=== PATIENT | male | born 1950 | race Caucasian/White ===

== ENCOUNTER 2024-11-12 22:51 | Day surgery (SDC) | payer MEDICARE, SELFPAY ==
[2024-11-12 17:13] VITALS: BP 161/94
[2024-11-12 17:31] LABS: Urine Character Clear (Clear)
[2024-11-12 17:32] LABS: Hematocrit 43.6 % (39.0-52.0); Hemoglobin 15.2 g/dL (13.0-18.0); Mean Corp Hgb Conc. 34.9 g/dL (33.0-37.0); Mean Corpuscular Volume 94.8 fL (80.0-94.0); Nucleated Red Blood Cells % 0 % (-); Platelet Count 246 10^3/uL (130-400); Red Cell Dist. Width 12.3 % (11.5-14.5)
[2024-11-12 17:42] LABS: Urine Red Blood Cell 90-100 /HPF (0-2)
[2024-11-12 17:45] LABS: ALT (SGPT) 21 U/L (0-50); AST (SGOT) 21 U/L (17-59); Albumin 4.7 g/dl (3.5-5.0); Alkaline Phosphatase 89 U/L (38-126); Blood Urea Nitrogen 24 mg/dl (9-20); Calcium 9.5 mg/dl (8.4-10.2); Carbon Dioxide 26 mmol/L (22-30); Chloride 102 mmol/L (98-107); Glucose 240 mg/dl (70-99); Lipase 278 U/L (23-300); Potassium 4.7 mmol/L (3.5-5.1); Sodium 137 mmol/L (135-145); Total Protein 7.6 g/dl (6.3-8.2); eGFR > 60.00
[2024-11-12] MEDS: TORADOL 15 MG IV ×2 (18:03→20:23)
[2024-11-12] MEDS: ZOFRAN 4 MG IV ×2 (18:03→20:24)
[2024-11-12] MEDS: NSS 1000 IV ×2 (18:04→20:24)
--- NOTE | 2024-11-12 18:23 | ED.GENMED ---
History of Present Illness
<Torito Overton PA-C - Last Filed: 11/12/24 18:25>
General
Chief Complaint: Abdominal Pain
Source: patient
Time Seen by Provider: 11/12/24 17:51
History of Present Illness
History of Present Illness:
74-year-old male presents with sudden onset pain to the right side of the abdomen occasionally radiates to the back. No associated urinary symptoms but does note nausea and vomiting. No fevers. No prior abdominal surgical history. He has a
remote history of kidney stones but this feels different. No change in bowel movements. No other complaints at this time
Past History
<Torito Overton PA-C - Last Filed: 11/12/24 18:25>
Past History
ED Past Medical History: Hypercholesterolemia and NIDDM
ED Past Surgical History: Orthopedic and Other (Anal fissure)
Phy Exam
<Torito Overton PA-C - Last Filed: 11/12/24 18:25>
Physical Exam
Physical Exam:
General: Uncomfortable appearing male vomiting throughout the exam
HEENT: Normal cephalic atraumatic
Heart: Regular rate and rhythm
Lungs: Clear no wheeze
Abdomen is soft slightly tender to the right lower abdomen and right flank
Extremities: No cyanosis
Course
<Torito Overton PA-C - Last Filed: 11/12/24 18:25>
Orders/Labs/Results
Orders:
Orders
11/12/24 17:17
Electrocardiogram (*1) Urgent
Reason for Study: Abdominal Pain
11/12/24 17:18
EKG- Treatment ONCE
11/12/24 17:22
CMP [Comprehensive Metabolic Panel] Urgent
Complete Blood Count/With Diff Urgent
Lipase Urgent
Urinalysis Reflex To Culture Urgent
Date Specimen was Collected: 11/12/24
Time Specimen was Collected: 17:17
Urine Microscopic Reflex Cult Urgent
Urine Culture Urgent
DEV Source: U
Specimen Description:
Date Specimen was Collected: 11/12/24
Time Specimen was Collected: 17:17
11/12/24 18:02
CT Abd/pel Without Iv Or Oral Urgent
Comment:
Reason For Exam: right flank pain, hematuria
Ketorolac [Toradol] 15 mg .ROUTE .STK-MED ONE
Ketorolac [Toradol] 15 mg IV NOW STA
Ondansetron Injectable [Zofran] 4 mg .ROUTE .STK-MED ONE
Ondansetron Injectable [Zofran] 4 mg IV NOW STA
11/12/24 18:15
0.9% Sodium Chloride 1000 ml [Nss] 1,000 ml IV Wide Open mls/hr
11/12/24 20:19
Ketorolac [Toradol] 15 mg IV NOW STA
Ondansetron Injectable [Zofran] 4 mg IV NOW STA
11/12/24 21:41
Tamsulosin [Flomax] 0.4 mg PO NOW STA
Abnormal Lab Results
11/12/24
17:22
RBC 4.60 L 10^6/uL
(4.70-6.10)
MCV 94.8 H fL
(80.0-94.0)
MCH 33.0 H pg
(27.0-31.0)
BUN 24 H mg/dl
(9-20)
Glucose 240 H mg/dl
(70-99)
Urine Ketones 1+ A
(Negative)
Ur Occult Blood Reflex 4+ A
(Negative)
Leukocyte Esterase Rfl 1+ A
(Negative)
Urine RBC 90-100 A /HPF
(0-2)
Urine Bacteria (Reflex) Few A
(Negative)
Urine Albumin (Reflex) 2+ A
(Neg - Trace)
11/12/24 17:22
11/12/24 17:22
Vital Signs
Initial and Last Documented VS:
Initial Vital Signs
Temp Pulse Resp BP Pulse Ox
98.5 F 84 18 161/94 96
11/12/24 17:13 11/12/24 17:13 11/12/24 17:13 11/12/24 17:13 11/12/24 17:13
Last Documented Vital Signs
Temp Pulse Resp BP Pulse Ox
98.5 F 71 16 133/67 97
11/12/24 17:13 11/12/24 21:50 11/12/24 21:50 11/12/24 21:50 11/12/24 21:50
<Jayson Holden PA-C - Last Filed: 11/12/24 22:04>
Orders/Labs/Results
Orders:
Orders
11/12/24 17:17
Electrocardiogram (*1) Urgent
Reason for Study: Abdominal Pain
11/12/24 17:18
EKG- Treatment ONCE
11/12/24 17:22
CMP [Comprehensive Metabolic Panel] Urgent
Complete Blood Count/With Diff Urgent
Lipase Urgent
Urinalysis Reflex To Culture Urgent
Date Specimen was Collected: 11/12/24
Time Specimen was Collected: 17:17
Urine Microscopic Reflex Cult Urgent
Urine Culture Urgent
DEV Source: U
Specimen Description:
Date Specimen was Collected: 11/12/24
Time Specimen was Collected: 17:17
11/12/24 18:02
CT Abd/pel Without Iv Or Oral Urgent
Comment:
Reason For Exam: right flank pain, hematuria
Ketorolac [Toradol] 15 mg .ROUTE .STK-MED ONE
Ketorolac [Toradol] 15 mg IV NOW STA
Ondansetron Injectable [Zofran] 4 mg .ROUTE .STK-MED ONE
Ondansetron Injectable [Zofran] 4 mg IV NOW STA
11/12/24 18:15
0.9% Sodium Chloride 1000 ml [Nss] 1,000 ml IV Wide Open mls/hr
11/12/24 20:19
Ketorolac [Toradol] 15 mg IV NOW STA
Ondansetron Injectable [Zofran] 4 mg IV NOW STA
11/12/24 21:41
Tamsulosin [Flomax] 0.4 mg PO NOW STA
Abnormal Lab Results
11/12/24
17:22
RBC 4.60 L 10^6/uL
(4.70-6.10)
MCV 94.8 H fL
(80.0-94.0)
MCH 33.0 H pg
(27.0-31.0)
BUN 24 H mg/dl
(9-20)
Glucose 240 H mg/dl
(70-99)
Urine Ketones 1+ A
(Negative)
Ur Occult Blood Reflex 4+ A
(Negative)
Leukocyte Esterase Rfl 1+ A
(Negative)
Urine RBC 90-100 A /HPF
(0-2)
Urine Bacteria (Reflex) Few A
(Negative)
Urine Albumin (Reflex) 2+ A
(Neg - Trace)
11/12/24 17:22
11/12/24 17:22
Vital Signs
Initial and Last Documented VS:
Initial Vital Signs
Temp Pulse Resp BP Pulse Ox
98.5 F 84 18 161/94 96
11/12/24 17:13 11/12/24 17:13 11/12/24 17:13 11/12/24 17:13 11/12/24 17:13
Last Documented Vital Signs
Temp Pulse Resp BP Pulse Ox
98.5 F 71 16 133/67 97
11/12/24 17:13 11/12/24 21:50 11/12/24 21:50 11/12/24 21:50 11/12/24 21:50
<Torito Overton PA-C - Last Filed: 11/12/24 18:25>
MDM/Problems Addressed
Differential Diagnosis Includes:
Right lower abdominal and flank discomfort. Consider appendicitis versus renal colic versus bowel obstruction versus pyelonephritis. Urinalysis most notably for hematuria no obvious infection. White count normal. Zofran fluids and Toradol
ordered CT without contrast pending
<Torito Overton PA-C - Last Filed: 11/12/24 18:25>
*Pulse Oximetry
SaO2: 96
Oxygen Mode of Delivery: Room air
<Jayson Holden PA-C - Last Filed: 11/12/24 22:04>
*Pulse Oximetry
Patient hypoxic: no
*Critical Care Note
Total Time (30-74mins, 75-104mins- exclusive of procedures): Not Applicable
<Jayson Holden PA-C - Last Filed: 11/12/24 22:04>
Update Note
Update Note:
Assumed care of patient from Fady Overton PA-C pending CT scan for suspected kidney stone. Scan does reveal a 4.7 x 7 distal right ureteral stone. Patient had pain about resulting in vomiting and says. He is hesitant to be discharged home
with pain medication. Given his age relatively large stone will admit for further pain control, urology made aware of admission
ED Attending Note
<Torito Overton PA-C - Last Filed: 11/12/24 18:25>
-
Portions of this chart may have been created with voice recognition software.� Occasional wrong word or��sound alike� substitutions may have occurred due to the inherent limitations of voice recognition software.
Discharge Plan
Departure
Patient Disposition: Admit
Date of Disposition: 11/12/24
Time of Disposition: 22:02
Admit to: Med/Surg
Presentation/result/management discussed w/ accepting MD/DO: Hospitalist
Discharge Problem:
Ureterolithiasis
Prescriptions:
No Action
prednisone 10 mg tablet
10 mg PO DIRECTED Qty: 30 0RF
Rx Instructions:
5 tab x3days.Then 4 tab x3days.Then 3 tab x3days.Then 2 tab x3days.Then 1 tab x3days.
diazepam [Valium] 5 mg tablet
5 mg PO TID PRN (Reason: muscle spasm) Qty: 14 0RF
Referrals:
Dioni Gallo MD [Family Provider, Internal Medicine]
Interventions
Interventions:
*Risk Screen - Suicide Last Done: 11/12/24 18:27
*General Assessment Last Done: 11/12/24 18:27
*Neglect/Abuse Screening Last Done: 11/12/24 18:27
*ED- Fall Risk Assessment Last Done: 11/12/24 18:27
*ED COVID-19 Vaccine History Last Done: 11/12/24 18:27
*ED Influenza Vaccine History Last Done: 11/12/24 18:27
JR-Kfusjp-Kqlvgcjgim Assessment Last Done: 11/12/24 17:58
Discharge Date and Time
Print Language: CZECH
[2024-11-12 18:28] VITALS: BP 152/70
[2024-11-12 20:19] VITALS: BP 155/78
[2024-11-12] MEDS: FLOMAX 0.4 MG PO (21:49)
[2024-11-12 21:50] VITALS: BP 133/67
--- NOTE | 2024-11-12 22:14 | W.PN.UPDATE ---
Update Note
Progress Note Update
This note serves as an addendum to the H&P by maintainer sewer and waterworks CECILIA� Sara BARTLETT
HPI
74M HX HTN, HLD, T2DM pw sudden onset pain to the right side of the abdomen occasionally radiates to the back. No associated urinary symptoms but does note nausea and vomiting. No fevers
Relevant VS
Temp Pulse Resp BP Pulse Ox
98.5 F 71 16 133/67 97
11/12/24 17:13 11/12/24 21:50 11/12/24 21:50 11/12/24 21:50 11/12/24 21:50
PE
Gen: looks not at ease
HEENT: anciteric
Neck: supple
Lungs: CTA
Cor: RRR S1 S2
Abdomen:�soft NT
PALLIATIVE CARE NURSE: NFND
MS: no edema
Relevant Data
11/12/24
17:22
RBC 4.60 L
MCV 94.8 H
MCH 33.0 H
BUN 24 H
Glucose 240 H
Urine Ketones 1+ A
Ur Occult Blood Reflex 4+ A
Leukocyte Esterase Rfl 1+ A
Urine RBC 90-100 A
Urine Bacteria (Reflex) Few A
Urine Albumin (Reflex) 2+ A
CT Abd/pel Without Iv Or Oral
- 4.7 x 7 mm distal right ureteral calculus with mild to moderate obstructive uropathy.
- No bladder calculus.
- Incidental finding suggest possibility of delayed small bowel intestinal transit.
- No bladder calculus.
No prior hospitalist admission:
ASSESSMENT & PLAN
Pending Rx reconciliation
4.7 x 7 mm distal R ureteral calculus with mild to moderate obstructive uropathy.
Diabetic patient
Remote HX kidney stones with spontaneous passage
- afebrile and Nl WCC
- UA looks OK
- NPO and IVF
- PRN analgesia
- strain urine
- Uro consulted
HX T2DM
- Hold Metformin and Glipizide
- add ISS low
Essential HTN
- normotensive
DVT Px: SCD
Full code
OBS MS
--- NOTE | 2024-11-12 22:36 | HPS.HSE ---
Family Physician
-
Family Physician: Dioni Gallo
Chief Complaint
-
Right flank pain and Vomiting
History of Present Illness
Patient is a 74 y/o male past medical history of diabetes mellitus and hyperlipidemia who presents with right flank pain and vomiting. Patient reports symptoms started this morning. He describes sharp pain tthat wraps around his right side. He
reportrs associated nausea and vomiting. He denies dysuria, urinary frequency or hematuria. He reports prior history of a kidney stone over 20 years ago which he states he passed on his own. He denies fevers, sweats or chills.
Medical History
Past Medical History
Past Medical History: Reports Other
Additional Past Medical History:
Diabetes Mellitus, Type II
Hyperlipidemia
Herpes labialis
Past Surgical History: Reports Other
Additional Past Surgical History:
Thumb Surgery
Right Knee Surgery
Left Ankle Surgery
Anal Fissure
Social History
Tobacco: Non-smoker
Alcohol: None
Family History
Family History: Not pertinent
Allergies / Home Medications
Allergies reflects when Allergies were last updated in [facility].
Home Medications with original date entered in [facility]
Allergy/Medication List:
Allergies
Allergy/AdvReac Type Severity Reaction Status Date / Time
No Known Allergies Allergy Unverified 11/04/22 15:40
Home Medications
acyclovir 800 mg tablet 800 mg PO DAILY 11/12/24
glipizide 2.5 mg tablet, extended release 24 hr 2.5 mg PO BID 11/12/24
metformin 500 mg tablet 1,000 mg PO QPM 11/12/24
metformin 500 mg tablet 500 mg PO DAILY 11/12/24
simvastatin 40 mg tablet 40 mg PO HS 11/12/24
tirzepatide 7.5 mg/0.5 mL subcutaneous pen injector (Mounjaro) 7.5 mg SC WE 11/12/24
Review of Systems
-
History Source: Patient
A 12 point ROS was completed and negative except as noted: Yes
Constitutional: Denies Fever or Chills
Respiratory: Denies Cough or Trouble Breathing
Cardiac: Denies Chest Pain or Palpitations
Abdomen/GI: Denies Abdominal Pain, Nausea, Vomiting, Diarrhea or Constipated
Physical Exam
Vital Signs
Vital Signs
Temp Pulse Resp BP Pulse Ox
98.5 F 71 16 133/67 97
11/12/24 17:13 11/12/24 21:50 11/12/24 21:50 11/12/24 21:50 11/12/24 21:50
Physical Exam
General: Well Developed, Well Nourished and No Apparent Distress
HEENT: NormoCephalic, Anicteric, Moist mucous membranes and Atraumatic
Respiratory: Clear and Non Labored Respirations; No Wheezes, Rales or Rhonchi
Cardiac: S1/S2 and Regular Rhythm
GI: Soft and Non Tender
Rectal: Deferred by Provider
Genito-urinary: No costovertebral tender
Musculoskeletal: No Clubbing, No Cyanosis and No Edema
Skin: Warm and Dry; No Rash
Neuro: Awake, Alert, Oriented and Nonfocal/grossly intact
Psych: Calm
Laboratory Results
-
11/12/24 17:22
11/12/24 17:22
Laboratory Results
Total Bilirubin 0.6 mg/dl (0.2-1.3) 11/12/24 17:22
AST 21 U/L (17-59) 11/12/24 17:22
ALT 21 U/L (0-50) 11/12/24 17:22
Alkaline Phosphatase 89 U/L (38-126) 11/12/24 17:22
Lipase 278 U/L (23-300) 11/12/24 17:22
Abd/Pelvis CT:
4.7 x 7 mm distal right ureteral calculus with mild to moderate obstructive uropathy.
Data Reviewed
-
CT Scan: Report Reviewed by me
Lab Data: Labs Reviewed by me
Impression/Plan
-
Obstructing Right Ureteral Stone
-Consult Urology
-Start empiric antibiotics
-Start Flomax
-Continue NPO for possible OR tomorrow
-Continue IVFs
Diabetes Mellitus, Type II
-Hold oral meds
-Monitor sugars and continue coverage insulin
Hyperlipidemia
-Continue simvastatin
DVT proph: SCDs
Code Status: Full Code
[2024-11-13] VITALS (10 sets, daily range): BP systolic 112–155; BP diastolic 62–91; BMI 25.9
[2024-11-13] MEDS: NSS 1000 IV ×3 (02:13→21:15)
[2024-11-13] MEDS: ROCEPHIN 1000 MG IV (02:28)
[2024-11-13] MEDS: STERILE WATER FOR INJECTION 10 ML IV (02:28)
--- NOTE | 2024-11-13 02:41 | PTCARENOTE ---
pt rec'vd from ER at 01:50 via w/c, pt able to ambulate to scale, vs WNL, IVF infusing, pt oriented to unit . Urinal at bedside , pt given call francois, plan of care implemented.
[2024-11-13 05:54] LABS: Hematocrit 38.0 % (39.0-52.0); Hemoglobin 13.1 g/dL (13.0-18.0); Mean Corp Hgb Conc. 34.5 g/dL (33.0-37.0); Mean Corpuscular Volume 94.3 fL (80.0-94.0); Platelet Count 197 10^3/uL (130-400); Red Cell Dist. Width 12.2 % (11.5-14.5)
[2024-11-13 06:18] LABS: Calcium 8.4 mg/dl (8.4-10.2); Carbon Dioxide 25 mmol/L (22-30); Chloride 109 mmol/L (98-107); Estimated Creatinine Clearance 67 ml/min; Glucose 101 mg/dl (70-99); Potassium 4.1 mmol/L (3.5-5.1); Sodium 139 mmol/L (135-145); eGFR > 60.00
[2024-11-13 06:28] LABS: Blood Urea Nitrogen 25 mg/dl (9-20)
[2024-11-13 07:11] LABS: Glucose - Point of Care 112 mg/dl (70-99)
[2024-11-13] MEDS: NOVOLOG FLEXPEN-LOW RESISTANCE SC ×2 (07:49→13:27)
[2024-11-13] MEDS: FLOMAX 0.4 MG PO (07:50)
[2024-11-13] MEDS: ZOVIRAX 800 MG PO (07:51)
--- NOTE | 2024-11-13 08:26 | CONS.URO ---
Consultation
-
Date/Time Consultation Performed: 0811/13
Performing Provider: Fidelfer
Reason for Consultation: Stone
Medical History
History of Present Illness
74M who presents with right flank pain and vomiting starting 11/12
He describes sharp pain tthat wraps around his right side
He denies dysuria, urinary frequency or hematuria.
No fevers/chills
He reports prior history of a kidney stone over 20 years ago which he states he passed on his own
CT showed a 7mm R distal ureteral stone
Pain was not able to be controlled in ER
This morning his pain is mostly resolved
Straining all urine but has not caught a stone
Past Medical History
Past Medical History: NIDDM and Other (kidney stone)
Past Surgical History: None
Social History
Tobacco: Non-smoker
Alcohol: None
Drug: None
Allergies/Home Medications
Allergies
Allergy/AdvReac Type Severity Reaction Status Date / Time
No Known Allergies Allergy Unverified 11/04/22 15:40
Home Medications
�Medication �Instructions �Recorded �Confirmed �Type
acyclovir 800 mg tablet 800 mg PO DAILY 11/12/24 11/12/24 History
glipizide 2.5 mg tablet, extended 2.5 mg PO BID 11/12/24 11/12/24 History
release 24 hr
metformin 500 mg tablet 1,000 mg PO QPM 11/12/24 11/12/24 History
metformin 500 mg tablet 500 mg PO DAILY 11/12/24 11/12/24 History
simvastatin 40 mg tablet 40 mg PO HS 11/12/24 11/12/24 History
tirzepatide 7.5 mg/0.5 mL 7.5 mg SC WE 11/12/24 11/12/24 History
subcutaneous pen injector
(Pato)
Physical Exam
Vital Signs
Vital Signs
Temp Pulse Resp BP Pulse Ox
98 F 75 16 124/70 97
11/13/24 07:05 11/13/24 07:05 11/13/24 07:05 11/13/24 07:05 11/13/24 07:05
Lab / Testing Results
Laboratory Results
11/13/24 05:34
11/13/24 05:34
Physical Exam
General: Well Developed, Well Nourished and No Apparent Distress
Respiratory: Clear and Non Labored Respirations
GI: Soft
Genito-urinary: No Costovertebral Tend
Neuro: AO x 3
Psych: Calm and Intact Judgement
Assessment / Plan
-
74M with R distal ureteral stone
Admitted for intractable pain
- Discussed options of outpatient trial of passage vs intervention. Patient prefers to proceed with surgery
- No evidence of infection or sepsis
- OR for cystoscopy, R ureteroscopy, laser lithotripsy, ureteral stent placement
- Ceftriaxone ppx
[2024-11-13 09:00] LABS: Glycohemoglobin (HgbA1c) 7.1 % (4.0-5.6)
--- NOTE | 2024-11-13 10:34 | CM ---
CM met with pt and spouse bedside
[place] step
Pt is independent with his ADLs, drives+
Very active and cycles daily
Denies use of DMEs and financial insecurities
Attending outpt PT at [facility] for rotator cuff injury
PCP- Dioni Gallo
Rx- Abigail
Pt is OBS- POTTER verbally reviewed
Copy provided
Plan for OR today with uro
Discharge Disposition- anticipate home no needs, family transport
--- NOTE | 2024-11-13 10:54 | W.SUR.PREOP ---
Pre-Operative Surgical Note
-
I have examined this patient prior to the performance of the scheduled procedure.
The patient's condition is unchanged from the time of the current History and
Physical and the patient is able to undergo the scheduled procedure.
--- NOTE | 2024-11-13 12:23 | W.IMMPOSTOP ---
Surgical Immed Post Op Note
-
Primary Surgeon:
laquita
Assisting Surgeon:
Pre-op Diagnosis:
right ureteral stone
Post-op Diagnosis:
same
Procedure Performed:
right ureteroscopy/laser litho and stent
Anesthesia Type:
gen
Specimen / Cultures:
none
Estimated Blood Loss:
2cc
Complications:
none
Operative Findings:
right ureteral stone fragmented and extracted
stent placed
observe overnight
if ucx negative and cr stable- plan discharge in am with outpt f/u for stent removal
[2024-11-13 12:36] LABS: Glucose - Point of Care 137 mg/dl (70-99)
--- NOTE | 2024-11-13 14:39 | W.PN.HOSP.TC ---
Today's Communication/Plan
-
Status post cystoscopy.
Observe
Follow urine cultures
Assessment / Plan
Assessment / Plan
Impression/plan
Obstructive right ureteral calculus.
Afebrile and hemodynamically stable upon presentation.
Urinalysis with no evidence for infection.
Status post cystoscopy with right ureteral stone fragmented and extracted stent placement.
Ceftriaxone given preoperatively
Monitor overnight
Follow urine cultures
Diabetes type 2.
Hemoglobin A1c 7.1
Preadmission regimen including Mounjaro, glipizide and metformin.
Continue basal bolus protocol
Resume oral glucose lowering medications upon discharge
Anticipated Discharge: Within 24 hours
Subjective/Interval History
-
Date of Service: November 13, 2024
Objective Data
-
Labs:
Laboratory Results
11/13/24
05:34
WBC 7.2
Hgb 13.1
Hct 38.0 L
Plt Count 197
Sodium 139
Potassium 4.1
Chloride 109 H
Carbon Dioxide 25
BUN 25 H
Creatinine 1.2
Glucose 101 H
Calcium 8.4
Vital Signs:
Vital Signs
Temp Pulse Resp BP Pulse Ox
97.7 F 90 16 114/91 96
11/13/24 14:24 11/13/24 14:24 11/13/24 14:24 11/13/24 14:24 11/13/24 14:24
I&O
11/12/24 11/13/24 11/14/24
06:59 06:59 06:59
Intake Total 625 / 625
Output Total 800 / 800
Balance -175 / -175
Physical Exam
-
General: Well Developed and No Apparent Distress
HEENT: Normocephalic, Atraumatic and Moist Mucous Membranes
Respiratory: Clear to Auscultation
Cardiac: Regular Rhythm and S1/S2; Negative Murmur, Rub or Gallop
GI: Soft, Nontender, Nondistended and Normal Bowel Sounds; Negative Organomegaly
Rectal: Deferred by Provider
Musculoskeletal: No Clubbing, No Cyanosis and No Edema
Skin: Negative Rash
Neuro: Nonfocal/Grossly Intact
[2024-11-13 17:04] LABS: Glucose - Point of Care 295 mg/dl (70-99)
[2024-11-13] MEDS: NOVOLOG FLEXPEN-LOW RESISTANCE 3 UNITS SC (17:58)
[2024-11-13] MEDS: LIPITOR 20 MG PO (21:15)
[2024-11-13 21:55] LABS: Glucose - Point of Care 266 mg/dl (70-99)
[2024-11-14] MEDS: STERILE WATER FOR INJECTION 10 ML IV (01:35)
[2024-11-14] MEDS: ROCEPHIN 1000 MG IV (01:35)
[2024-11-14 03:17] VITALS: BP 110/64
[2024-11-14 07:12] LABS: Glucose - Point of Care 175 mg/dl (70-99)
--- NOTE | 2024-11-14 07:31 | W.PN.URO.CBU ---
Today's Communication / Plan
-
discharge
Assessment / Plan
-
s/p right ureteroscopy/laser litho and stent
reviewed discharge instructions
home today
Diagnosis
-
Date of Service: November 14, 2024
-
Patient Diagnosis:
stone
Post Op Day:
right ureteroscopy/laser litho and stent
Subjective
-
pt doing well
minimal urinary bother
no fevers
ucx negative
Objective
-
Vital Signs
Temp Pulse Resp BP Pulse Ox
98.3 F 70 17 110/64 98
11/14/24 03:17 11/14/24 03:17 11/14/24 03:17 11/14/24 03:17 11/14/24 03:17
Intake and Output
11/13/24 11/14/24 11/15/24
06:59 06:59 06:59
Intake Total 625 / 625 1680 / 1680
Output Total 800 / 800 1000 / 1400 400 / 400
Balance -175 / -175 680 / 280 -400 / -400
Intake:
Oral fluids 720 / 720
IV fluids (Total) 625 / 625 960 / 960
Output:
Urine, Voided 800 / 800 1000 / 1400 400 / 400
Laboratory Results
11/13/24 05:34
11/13/24 05:34
Review of Systems
-
Constitutional: No Symptoms
Respiratory: No Symptoms
Cardiac: No Symptoms
Abdomen/GI: No Symptoms
: Frequency
Physical Exam
-
General - well developed, well nourished, no acute distress
[2024-11-14 07:35] VITALS: BP 117/60
[2024-11-14] MEDS: FLOMAX 0.4 MG PO (07:39)
[2024-11-14] MEDS: ZOVIRAX 800 MG PO (07:39)
[2024-11-14] MEDS: NOVOLOG FLEXPEN-LOW RESISTANCE 1 UNITS SC (07:41)
--- NOTE | 2024-11-14 09:02 | CM ---
Reviewed the chart notes. Patient for discharge today to home. No needs identified at this time. Family will provide transportation home.
== END 2024-11-14 09:48 | disposition home or self-care (01) ==
LOC: PACU 22:51
PROVIDERS: Physician Assistant Medical; Specialist; ATTENDING PHYSICIAN Internal Medicine; CONSULT PHYSICIAN Urology; EMERGENCY PHYSICIAN Emergency Medicine; FAMILY PHYSICIAN Internal Medicine
DX: N20.1 Calculus of ureter (principal)
CPT/HCPCS: 52356; 74018; 74176; 76000; 80048; 80053; 81003; 81015; 82365; 82962; 83036; 83690; 85025; 85027; 87086; 93005; 96361; 96374; 96375; 96376; 99285; C2617